=== PATIENT | female | born 1990 | race African-American/Black ===

== ENCOUNTER 2016-05-29 17:14 | Emergency (ER) | payer OTHER ==
[~2016-05-29] VITALS: Ht 170.2 cm; Wt 54.0 kg
[2016-05-29 17:27] VITALS: BP 112/71
--- NOTE | 2016-05-29 17:30 | NUR ---
Patient ambulated to bed 8. RN evaluating patient at bedside.
--- NOTE | 2016-05-29 17:35 | NUR ---
PT PRESENTS TO ER W/C/O DIZZINESS X3 DAYS. PT STATES SHE HAS HX OF 1ST DEGREE HEART BLOCK, BUT DENIES ANY OTHER MEDICAL HX.PT STATES SHE HAS A HEADACHE W/ PAIN SCALE OF 4/10.DENIES CP/SOB/F/N/V/D.NO ACUTE DISTRESS NOTED AT THIS TIME;SKIN IS INTACT;WARM TO TOUCH;HOB ELEVATED;NEEDS ATTENDED;SAFETY MEASURES DONE;POSITION FOR COMFORT;MD MADE AWARE OF PT'S CONDITION;
--- NOTE | 2016-05-29 17:39 | NUR ---
DR SANDY AT BEDSIDE
--- NOTE | 2016-05-29 17:55 | NUR ---
PT WENT TO CT SCAN ACCOMPANIED BY TECH.
[2016-05-29] MEDS ORDERED: MECLIZINE 25 MG TAB PO ONE (18:10)
[2016-05-29 19:32] VITALS: BP 112/86
== END 2016-05-29 19:32 | disposition home or self-care (01) ==
LOC: MED 17:14
DX: R42 Dizziness and giddiness (principal); R03.0 Elevated blood-pressure reading, without diagnosis of hypertension; R11.0 Nausea; R51 Headache; Z88.8 Allergy status to other drugs, medicaments and biological substances
CPT/HCPCS: 70450; 81002; 81025; 93005; 99284; J8597

== ENCOUNTER 2018-07-24 11:53 | Emergency (ER) | payer OTHER ==
[~2018-07-24] VITALS: Ht 170.2 cm; Wt 59.2 kg
--- NOTE | 2018-07-24 12:00 | NUR ---
PT AMBULATED TO ER BED 08
[2018-07-24 12:02] VITALS: BP 122/71
--- NOTE | 2018-07-24 12:15 | NUR ---
C/O BODY ACHES AND SORE THROAT W/ FEVER X1 DAY. PT REPORTS A (+) HOME TEST YESTERDAY. DENIES N/V/D, COUGH. PT IS AFEBRILE AT THIS TIME. BED IN LOW POSITION, SIDE RAIL UP X1. FAMILY AT BEDSIDE.
--- NOTE | 2018-07-24 12:25 | NUR ---
ERMD AT BEDSIDE
[2018-07-24 12:45] VITALS: BP 120/66
--- NOTE | 2018-07-24 12:45 | NUR ---
Patient discharged with v/s stable. Written and verbal after care instructions given and explained. Patient verbalized understanding. Ambulatory with steady gait. All questions addressed prior to discharge. Advised to follow up with PMD.
== END 2018-07-24 12:45 | disposition home or self-care (01) ==
LOC: MED 11:53
DX: O99.511 Diseases of the respiratory system complicating pregnancy, first trimester (principal); J06.9 Acute upper respiratory infection, unspecified; Z3A.01 Less than 8 weeks gestation of pregnancy; Z88.8 Allergy status to other drugs, medicaments and biological substances
CPT/HCPCS: 81002; 81025; 99281; 99282

== ENCOUNTER 2018-08-01 14:24 | Emergency (ER) | payer OTHER ==
[~2018-08-01] VITALS: Ht 170.2 cm; Wt 59.0 kg
[2018-08-01 14:30] VITALS: BP 110/67
--- NOTE | 2018-08-01 14:30 | NUR ---
PT AMBULATORY TO BED 6 WITH CHILDREN
--- NOTE | 2018-08-01 14:51 | NUR ---
27/F BIB SELF C/O VAGINAL BLEEDING X 4 DAYS, SPOTTING. PT A1 IUP 5+WKS. PATIENT STATES PAIN OF 0/10 AT THIS TIME; PATIENT POSITIONED FOR COMFORT; HOB ELEVATED; BEDRAILS UP X2; BED DOWN. ER MD MADE AWARE OF PT STATUS.
--- NOTE | 2018-08-01 15:03 | NUR ---
LAB AT BEDSIDE.
[2018-08-01 15:16] LABS: BASOPHILS % (AUTO) 0.6 % (0.0-2.0); EOSINOPHILS # (AUTO) 0.2 K/uL (0-0.4); EOSINOPHILS % (AUTO) 2.1 % (0.0-4.0); HEMATOCRIT 34.5 % (36-48); HEMOGLOBIN 11.3 g/dL (12.0-16.0); LYMPHOCYTES # (AUTO) 1.9 K/uL (2.5-16.5); MEAN CORPUSCULAR HEMOGLOBIN 31 pg (27-31); MEAN CORPUSCULAR HGB CONC 33 g/dL (33-37); MEAN CORPUSCULAR VOLUME 93.2 fL (80-94); MONOCYTES # (AUTO) 0.8 K/uL (0.8-1.0); MONOCYTES % (AUTO) 10.6 % (1.7-9.3); NEUTROPHILS # (AUTO) 4.7 K/uL (1.8-7.7); NEUTROPHILS % (AUTO) 61.7 % (42.2-75.2); PLATELET COUNT (AUTO) 325 K/uL (140-450); RED BLOOD CELL COUNT(AUTO) 3.69 MIL/uL (4.20-5.40); RED CELL DISTRIBUTION WIDTH 13.4 % (11.6-13.7); WHITE BLOOD COUNT (AUTO) 7.6 K/uL (4.8-10.8)
[2018-08-01 16:31] LABS: APPEARANCE,URINE HAZY (CLEAR); BILIRUBIN,URINE NEGATIVE (NEGATIVE); BLOOD, URINE 1+ (NEGATIVE); COLOR,URINE YELLOW (YELLOW); LEUKOCYTE ESTERASE ,URINE NEGATIVE (NEGATIVE); NITRITE, URINE NEGATIVE (NEGATIVE); PH,URINE 7.5 (5.0-9.0); UGLUCOSE NEGATIVE (NEGATIVE)
[2018-08-01 16:46] LABS: WBC,URINE 0-5 /HPF (0-5)
[2018-08-01 16:53] VITALS: BP 115/76
== END 2018-08-01 16:53 | disposition home or self-care (01) ==
LOC: MED 14:24
DX: O20.0 Threatened abortion (principal); Z3A.01 Less than 8 weeks gestation of pregnancy; Z88.8 Allergy status to other drugs, medicaments and biological substances
CPT/HCPCS: 36415; 76817; 81001; 81025; 84702; 85025; 86900; 86901; 87086; 99284; Q0092

== ENCOUNTER 2018-08-07 11:37 | Emergency (ER) | payer OTHER ==
[~2018-08-07] VITALS: Ht 170.2 cm; Wt 59.0 kg
[2018-08-07 11:50] VITALS: BP 118/66
--- NOTE | 2018-08-07 12:00 | NUR ---
PATIENT AMBULATED TO BED 9.
[2018-08-07 13:47] LABS: BILIRUBIN,URINE NEGATIVE (NEGATIVE); BLOOD, URINE 2+ (NEGATIVE); COLOR,URINE YELLOW (YELLOW); LEUKOCYTE ESTERASE ,URINE 1+ (NEGATIVE); NITRITE, URINE NEGATIVE (NEGATIVE); UGLUCOSE NEGATIVE (NEGATIVE)
--- NOTE | 2018-08-07 14:00 | NUR ---
PT RESTING IN GURNEY, APPEARS COMFORTABLE, AOX4. BRETHNG UNLABORED AND EVEN. SKIN PINK WARM AND DRY. NO NAUSEA , VOMITING AT THIS TIME. AWAITING DISPOSITION.
[2018-08-07 14:11] LABS: APPEARANCE,URINE HAZY (CLEAR)
[2018-08-07 14:23] LABS: WBC,URINE 16-25 (MOD) /HPF (0-5)
--- NOTE | 2018-08-07 15:10 | NUR ---
ALL RESULTS BACK AND NOTED BY ERMD AND FOR D/C.
[2018-08-07 15:24] VITALS: BP 120/76
--- NOTE | 2018-08-07 15:24 | NUR ---
Patient discharged with v/s stable. Written and verbal after care instructions given and explained. Patient alert, oriented and verbalized understanding of instructions. Ambulatory with steady gait. All questions addressed prior to discharge. ID band removed. Patient advised to follow up with PMD. Rx of MACROBID CAP 100MG given. Patient educated on indication of medication including possible reaction and side effects. Opportunity to ask questions provided and answered.
--- NOTE | 2018-08-07 15:41 | NUR ---
Chart checked and completed. The patient's care was reviewed and supervised by Lisa Gallardo RN.
[2018-08-09 06:28] LABS: CHLAMYDIA TRACHOMATIS AMP DNA Negative (Negative)
== END 2018-08-07 15:24 | disposition home or self-care (01) ==
LOC: MED 11:37
DX: O20.0 Threatened abortion (principal); Z3A.01 Less than 8 weeks gestation of pregnancy; Z88.8 Allergy status to other drugs, medicaments and biological substances
CPT/HCPCS: 36415; 81001; 81025; 84702; 87086; 87491; 99283

== ENCOUNTER 2018-09-20 14:00 | Emergency (ER) | payer OTHER ==
[~2018-09-20] VITALS: Ht 170.2 cm; Wt 58.2 kg
[2018-09-20 14:05] VITALS: BP 111/73
--- NOTE | 2018-09-20 14:07 | NUR ---
Patient ambulated to bed 3. RN evaluating patient at bedside.
--- NOTE | 2018-09-20 14:15 | NUR ---
27/F BIB SELF C/O VAGINAL SPOTTING SINED 08/31/18 AFTER TERMINATING , LOWER ABDOMINAL CRAMPING X TODAY, HX OF ANXIETY, DEPRESSION, NOT TAKING ANY MEDS AT HOME PER PATIENT. PATIENT STATES PAIN OF 2/10 AT THIS TIME; PATIENT POSITIONED FOR COMFORT; HOB ELEVATED; BEDRAILS UP X1; BED DOWN. ER MD MADE AWARE OF PT STATUS.
--- NOTE | 2018-09-20 14:21 | NUR ---
Dr. Stewart evaluating patient at bedside.
[2018-09-20] MEDS ORDERED: cefTRIAXone 250 MG in LIDOCAINE MPF 1% - 5 mL VIAL 0.9 ML IM ONE (14:25)
[2018-09-20] MEDS ORDERED: AZITHROMYCIN 250 MG TAB PO ONE (14:25)
[2018-09-20 15:02] VITALS: BP 112/70
--- NOTE | 2018-09-20 15:02 | NUR ---
Patient discharged with v/s stable. Written and verbal after care instructions given and explained. Patient alert, oriented and verbalized understanding of instructions. Ambulatory with steady gait. All questions addressed prior to discharge. ID band removed. Patient advised to follow up with PMD. Rx of DOXYCYCLINE & FLUCONAZOLE given. Patient educated on indication of medication including possible reaction and side effects. Opportunity to ask questions provided and answered.
[2018-09-22 06:25] LABS: CHLAMYDIA TRACHOMATIS AMP DNA Negative (Negative)
== END 2018-09-20 15:02 | disposition home or self-care (01) ==
LOC: MED 14:00
DX: N89.8 Other specified noninflammatory disorders of vagina (principal); Z88.8 Allergy status to other drugs, medicaments and biological substances; Z86.79 Personal history of other diseases of the circulatory system
CPT/HCPCS: 36415; 87491; 96372; 99283; J0696; J2001

== ENCOUNTER 2018-10-02 13:34 | Emergency (ER) | payer OTHER ==
[~2018-10-02] VITALS: Ht 170.2 cm; Wt 56.9 kg
[2018-10-02 13:43] VITALS: BP 123/79
--- NOTE | 2018-10-02 13:49 | NUR ---
PT TO LOBBY
--- NOTE | 2018-10-02 14:10 | NUR ---
PT TO ER BED 12
--- NOTE | 2018-10-02 14:15 | NUR ---
PT PRESENTS TO ED WITH C/O SCANT RED VAGINAL BLEEDING S/P 08/31/18 AT 9 WEEKS GESTATION. DENIES DIZZINESS, SOB. +NAUSEA X 2 WEEKS. +PELVIC PAIN X LAST NIGHT. DENIES FEVER/CHILLS. NO URINARY COMPLAINTS. G4, P2 HX: 1ST DEGREE HEART BLOCK RX: DENIES
[2018-10-02 15:52] LABS: BASOPHILS # (AUTO) 0.1 K/uL (0.00-0.22); BASOPHILS % (AUTO) 1.1 % (0.0-2.0); EOSINOPHILS # (AUTO) 0.1 K/uL (0-0.4); EOSINOPHILS % (AUTO) 2.1 % (0.0-4.0); HEMATOCRIT 37.9 % (36-48); HEMOGLOBIN 12.4 g/dL (12.0-16.0); LYMPHOCYTES % (AUTO) 41.6 % (20.5-51.1); MEAN CORPUSCULAR HEMOGLOBIN 31 pg (27-31); MEAN CORPUSCULAR HGB CONC 33 g/dL (33-37); MEAN CORPUSCULAR VOLUME 94.3 fL (80-94); MONOCYTES # (AUTO) 0.6 K/uL (0.8-1.0); MONOCYTES % (AUTO) 12.2 % (1.7-9.3); NEUTROPHILS # (AUTO) 2.1 K/uL (1.8-7.7); PLATELET COUNT (AUTO) 240 K/uL (140-450); RED BLOOD CELL COUNT(AUTO) 4.02 MIL/uL (4.20-5.40); RED CELL DISTRIBUTION WIDTH 14.8 % (11.6-13.7); WHITE BLOOD COUNT (AUTO) 4.8 K/uL (4.8-10.8)
[2018-10-02 17:10] LABS: APPEARANCE,URINE HAZY (CLEAR); BILIRUBIN,URINE NEGATIVE (NEGATIVE); BLOOD, URINE 3+ (NEGATIVE); COLOR,URINE YELLOW (YELLOW); LEUKOCYTE ESTERASE ,URINE TRACE (NEGATIVE); NITRITE, URINE NEGATIVE (NEGATIVE); UGLUCOSE NEGATIVE (NEGATIVE)
[2018-10-02 17:30] LABS: RBC,URINE 11-20 (MOD) /HPF (0-5)
[2018-10-02 17:32] VITALS: BP 120/74
== END 2018-10-02 17:32 | disposition home or self-care (01) ==
LOC: MED 13:34
DX: N93.9 Abnormal uterine and vaginal bleeding, unspecified (principal); Z98.890 Other specified postprocedural states; Z88.8 Allergy status to other drugs, medicaments and biological substances; Z86.79 Personal history of other diseases of the circulatory system
CPT/HCPCS: 36415; 76817; 81001; 81025; 84702; 85025; 86900; 86901; 87086; 99284; Q0092

== ENCOUNTER 2018-10-06 14:29 | Emergency (ER) | payer OTHER ==
[~2018-10-06] VITALS: Ht 170.2 cm; Wt 56.7 kg
[2018-10-06 14:39] VITALS: BP 119/60
[2018-10-06 16:39] VITALS: BP 110/62
== END 2018-10-06 16:39 | disposition home or self-care (01) ==
LOC: MED 14:29
DX: N93.9 Abnormal uterine and vaginal bleeding, unspecified (principal); I44.0 Atrioventricular block, first degree; Z88.8 Allergy status to other drugs, medicaments and biological substances
CPT/HCPCS: 36415; 84702; 99283

== ENCOUNTER 2018-11-01 13:44 | Emergency (ER) | payer OTHER ==
[~2018-11-01] VITALS: Ht 170.2 cm; Wt 57.7 kg
[2018-11-01 13:56] VITALS: BP 115/74
[2018-11-01] MEDS ORDERED: KETOROLAC 60 MG/2 ML VIAL IM ONE (14:15)
[2018-11-01 15:49] LABS: BASOPHILS # (AUTO) 0.1 K/uL (0.00-0.22); BASOPHILS % (AUTO) 0.9 % (0.0-2.0); EOSINOPHILS # (AUTO) 0.1 K/uL (0-0.4); EOSINOPHILS % (AUTO) 1.1 % (0.0-4.0); HEMATOCRIT 34.9 % (36-48); HEMOGLOBIN 11.2 g/dL (12.0-16.0); LYMPHOCYTES # (AUTO) 1.3 K/uL (2.5-16.5); MEAN CORPUSCULAR HEMOGLOBIN 30 pg (27-31); MEAN CORPUSCULAR HGB CONC 32 g/dL (33-37); MEAN CORPUSCULAR VOLUME 92.3 fL (80-94); MONOCYTES # (AUTO) 0.7 K/uL (0.8-1.0); MONOCYTES % (AUTO) 11.8 % (1.7-9.3); NEUTROPHILS # (AUTO) 3.7 K/uL (1.8-7.7); NEUTROPHILS % (AUTO) 63.2 % (42.2-75.2); PLATELET COUNT (AUTO) 291 K/uL (140-450); RED BLOOD CELL COUNT(AUTO) 3.78 MIL/uL (4.20-5.40); RED CELL DISTRIBUTION WIDTH 14.1 % (11.6-13.7); WHITE BLOOD COUNT (AUTO) 5.8 K/uL (4.8-10.8)
[2018-11-01 15:59] LABS: BILIRUBIN,URINE 1+ (NEGATIVE); BLOOD, URINE 3+ (NEGATIVE); COLOR,URINE YELLOW (YELLOW); LEUKOCYTE ESTERASE ,URINE TRACE (NEGATIVE); NITRITE, URINE NEGATIVE (NEGATIVE); UGLUCOSE NEGATIVE (NEGATIVE)
[2018-11-01 16:06] LABS: APPEARANCE,URINE SLIGHTLY CLOUDY (CLEAR)
[2018-11-01 16:08] LABS: RBC,URINE 0-5 /HPF (0-5); WBC,URINE 0-5 /HPF (0-5)
[2018-11-01 17:57] VITALS: BP 128/75
== END 2018-11-01 17:57 | disposition home or self-care (01) ==
LOC: MED 13:44
DX: O20.0 Threatened abortion (principal); Z3A.00 Weeks of gestation of pregnancy not specified; Z98.890 Other specified postprocedural states; Z88.8 Allergy status to other drugs, medicaments and biological substances
CPT/HCPCS: 36415; 76817; 81001; 81025; 84702; 85025; 99284; Q0092

== ENCOUNTER 2021-02-07 22:35 | Emergency (ER) | payer OTHER ==
[~2021-02-07] VITALS: Ht 170.2 cm; Wt 66.7 kg
[2021-02-07 22:40] VITALS: BP 140/72
--- NOTE | 2021-02-07 22:43 | NUR ---
to lobby a/w bed ambulatory
--- NOTE | 2021-02-07 23:16 | NUR ---
PT AMBULATED TO BED 7
--- NOTE | 2021-02-07 23:17 | NUR ---
Dr. Tucker examining patient.
[2021-02-07] MEDS ORDERED: KETOROLAC 60 MG/2 ML VIAL IM ONE (23:20)
--- NOTE | 2021-02-07 23:48 | NUR ---
Patient discharged with v/s stable. Written and verbal after care instructions given and explained. Patient verbalized understanding. Ambulatory with steady gait. ID band removed. All questions addressed prior to discharge. Advised to follow up with PMD.
--- NOTE | 2021-02-07 23:48 | NUR ---
Seen by ALANNA no nursing interventions needed for patient
== END 2021-02-07 23:48 | disposition home or self-care (01) ==
LOC: MED 22:35
DX: N39.0 Urinary tract infection, site not specified (principal); Z86.79 Personal history of other diseases of the circulatory system; Z98.890 Other specified postprocedural states; Z88.8 Allergy status to other drugs, medicaments and biological substances
CPT/HCPCS: 81002; 81025; 99282

== ENCOUNTER 2022-01-20 08:45 | Emergency (ER) | payer OTHER ==
[~2022-01-20] VITALS: Ht 170.2 cm; Wt 68.9 kg
[2022-01-20 08:50] VITALS: BP 118/64
--- NOTE | 2022-01-20 09:09 | NUR ---
31F presents to ED with complaint of left sided upper back pain x4days. Pt reports unable to recall how the pain began, denies trauma or injury. Pt reports a constant, aching like, 6/10 pain that begins in left upper back and radiates to left side of chest and left arm. Pt denies use of meds for pain management, denies SOB, chest tightness, dizziness. Pt changed into gown, placed on bedside monitor.
[2022-01-20] MEDS ORDERED: KETOROLAC 30 MG/ML VIAL IM ONE (09:15)
--- NOTE | 2022-01-20 09:16 | NUR ---
Pt refusing medication. Dr. Licona made aware.
[2022-01-20 09:50] LABS: BASOPHILS % (AUTO) 0.7 % (0.0-2.0); EOSINOPHILS # (AUTO) 0.2 K/uL (0-0.4); EOSINOPHILS % (AUTO) 2.6 % (0.0-4.0); HEMATOCRIT 35.3 % (36-48); HEMOGLOBIN 11.6 g/dL (12.0-16.0); LYMPHOCYTES # (AUTO) 2.1 K/uL (2.5-16.5); LYMPHOCYTES % (AUTO) 33.2 % (20.5-51.1); MEAN CORPUSCULAR HEMOGLOBIN 32 pg (27-31); MEAN CORPUSCULAR HGB CONC 33 g/dL (33-37); MEAN CORPUSCULAR VOLUME 97.2 fL (80-94); MONOCYTES # (AUTO) 0.7 K/uL (0.8-1.0); MONOCYTES % (AUTO) 10.6 % (1.7-9.3); NEUTROPHILS # (AUTO) 3.3 K/uL (1.8-7.7); NEUTROPHILS % (AUTO) 52.9 % (42.2-75.2); PLATELET COUNT (AUTO) 293 K/uL (140-450); RED BLOOD CELL COUNT(AUTO) 3.63 MIL/uL (4.20-5.40); RED CELL DISTRIBUTION WIDTH 13.5 % (11.6-13.7); WHITE BLOOD COUNT (AUTO) 6.3 K/uL (4.8-10.8)
[2022-01-20 09:51] LABS: CARBON DIOXIDE 29.5 mmol/L (21-32); CREATININE 1.2 mg/dL (0.6-1.3); POTASSIUM 3.5 mmol/L (3.5-5.1)
[2022-01-20 10:50] VITALS: BP 114/85
--- NOTE | 2022-01-20 10:58 | NUR ---
Pt refusing CT with contrast. Dr. Licona made aware.
[2022-01-20] MEDS ORDERED: NAPR-1704 PO (11:08)
--- NOTE | 2022-01-20 11:17 | NUR ---
Patient does not wish to proceed with medical care recommended by Dr. Licona. Patient given information related to possible complications, up to and including , which could occur as a result of leaving hospital at this time. Patient verbalizes understanding of risks involved leaving against medical advice. Patient has signed AMA form.
[2022-01-21] MEDS ORDERED: ONDA-188 PO (16:52)
[2022-01-21] MEDS ORDERED: FAMO-90 PO (16:52)
[2022-01-21] MEDS ORDERED: CYCL-711 PO (17:49)
[2022-01-21] MEDS ORDERED: IBUP-1842 PO (17:49)
== END 2022-01-20 11:17 | disposition left against medical advice (07) ==
LOC: MED 08:45
DX: R07.9 Chest pain, unspecified (principal); I25.10 Atherosclerotic heart disease of native coronary artery without angina pectoris; R97.1 Elevated cancer antigen 125 [CA 125]
CPT/HCPCS: 36415; 71045; 80048; 81002; 81025; 84484; 85025; 85379; 93005; 99291; J1885

== ENCOUNTER 2022-01-21 14:17 | Emergency (ER) | payer OTHER ==
[~2022-01-21] VITALS: Ht 170.2 cm; Wt 69.4 kg
[~2022-01-21 14:17] MED LIST: NAPR-1704 PO
[2022-01-21 14:36] VITALS: BP 118/69
[2022-01-21] MEDS ORDERED: NACL 0.9% 1,000 ML IV ONE (16:05)
[2022-01-21 16:20] LABS: BASOPHILS % (AUTO) 0.7 % (0.0-2.0); EOSINOPHILS # (AUTO) 0.2 K/uL (0-0.4); EOSINOPHILS % (AUTO) 2.2 % (0.0-4.0); HEMATOCRIT 34.9 % (36-48); HEMOGLOBIN 11.6 g/dL (12.0-16.0); LYMPHOCYTES # (AUTO) 2.3 K/uL (2.5-16.5); LYMPHOCYTES % (AUTO) 32.5 % (20.5-51.1); MEAN CORPUSCULAR HEMOGLOBIN 32 pg (27-31); MEAN CORPUSCULAR HGB CONC 33 g/dL (33-37); MEAN CORPUSCULAR VOLUME 96.5 fL (80-94); MONOCYTES # (AUTO) 0.7 K/uL (0.8-1.0); MONOCYTES % (AUTO) 9.4 % (1.7-9.3); NEUTROPHILS # (AUTO) 3.9 K/uL (1.8-7.7); NEUTROPHILS % (AUTO) 55.2 % (42.2-75.2); PLATELET COUNT (AUTO) 287 K/uL (140-450); RED BLOOD CELL COUNT(AUTO) 3.62 MIL/uL (4.20-5.40); RED CELL DISTRIBUTION WIDTH 13.7 % (11.6-13.7)
[2022-01-21 16:38] LABS: ALBUMIN 3.6 g/dL (3.4-5.0); ANION GAP 10.1 (8-16); ASPARTATE AMINOTRANSFERASE 19 U/L (15-37); CARBON DIOXIDE 28.9 mmol/L (21-32); CHLORIDE 105 mmol/L (98-107); CREATININE 1.1 mg/dL (0.6-1.3); GFR ARICAN-AMERICAN 76 mL/min (>90); GLUCOSE 89 mg/dL (74-106); SODIUM SERUM 140 mmol/L (136-145); TOTAL BILIRUBIN 0.2 mg/dL (0.0-1.0); UREA NITROGEN, BLOOD 17 mg/dL (7-18)
[2022-01-21] MEDS ORDERED: FAMO-90 PO (16:52)
[2022-01-21] MEDS ORDERED: ONDA-188 PO (16:52)
[2022-01-21] MEDS ORDERED: IBUP-1842 PO (17:49)
[2022-01-21] MEDS ORDERED: CYCL-711 PO (17:49)
[2022-01-21 18:22] VITALS: BP 128/77
== END 2022-01-21 18:21 | disposition home or self-care (01) ==
LOC: MED 14:17
DX: R07.9 Chest pain, unspecified (principal); Z79.899 Other long term (current) drug therapy; Z79.1 Long term (current) use of non-steroidal anti-inflammatories (NSAID); Z88.8 Allergy status to other drugs, medicaments and biological substances
CPT/HCPCS: 36415; 71275; 80053; 84484; 85025; 93005; 96360; 99285; J7030; Q9967

== ENCOUNTER 2023-11-26 06:44 | Emergency (ER) | payer OTHER ==
[~2023-11-26] VITALS: Ht 170.2 cm; Wt 77.1 kg
[~2023-11-26 06:44] MED LIST changes: +CYCL-711 PO; +FAMO-90 PO; +IBUP-1842 PO; +ONDA-188 PO
[2023-11-26 06:46] VITALS: BP 123/85; PULSE 88; RESP 16; TEMP 98; O2SAT 100
[2023-11-26] MEDS ORDERED: IBUP-2213 PO (07:07)
[2023-11-26] MEDS: KETOROLAC 60 MG/2 ML VIAL IM ONE (07:19)
== END 2023-11-26 07:16 | disposition home or self-care (01) ==
LOC: MED 06:44
DX: S13.4XXA Sprain of ligaments of cervical spine, initial encounter (principal); R03.0 Elevated blood-pressure reading, without diagnosis of hypertension; Z79.899 Other long term (current) drug therapy; Z98.890 Other specified postprocedural states; Z88.8 Allergy status to other drugs, medicaments and biological substances; X58.XXXA Exposure to other specified factors, initial encounter; Y93.89 Activity, other specified; Y92.89 Other specified places as the place of occurrence of the external cause; Y99.8 Other external cause status
CPT/HCPCS: 99282; J1885